=== PATIENT | male | born 1985 ===

== ENCOUNTER 2024-10-05 16:57 | Emergency (ER) | payer OTHER, SELFPAY ==
[2024-10-05 17:09] VITALS: BP 132/85; PULSE 80; RESP 16; TEMP 36.6; O2SAT 99
--- NOTE | 2024-10-05 17:29 | ED.GENADULT ---
HPI - General Adult General Chief complaint: Neck Pain/Injury Stated complaint: Neck Pain Source: patient Mode of arrival: ambulatory Limitations: no limitations History of Present Illness HPI narrative: Patient presents for evaluation pain for the last 3-4 days. He denies any precipitating cause or injury. 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 Pain is constant, 9/10 in severity, worse with certain movements. He has radiation into the left arm. He also has some numbness in left arm but not in the digits of that hand. He tried taking 600 mg of ibuprofen earlier today without much improvement. No history of injury to the neck. history of similar symptoms. Related Data Allergies Allergy/AdvReac Type Severity Reaction Status Date / Time No Known Allergies Allergy Verified 10/05/24 17:16 Review of Systems Review of Systems: CONSTITUTIONAL: Denies fever, chills, or sweats. EYES: Denies visual changes, redness, or discharge. ENT: Denies rhinorrhea, congestion, sore throat, or otalgia. CARDIOVASCULAR: Denies chest pain, palpitations, or edema. RESPIRATORY: Denies cough or dyspnea. GASTROINTESTINAL: Denies abdominal pain, nausea, vomiting, or diarrhea. GENITOURINARY: Denies dysuria or hematuria. SKIN: Denies rash or itching. MUSCULOSKELETAL:Reports neck pain with radiation into the LUE NEUROLOGIC: Reports numbness in LUE. Denies headache, dizziness, or weakness. PSYCHIATRIC: Denies anxiety or depression. PMFSH Past Medical History Medical History Hypertension Surgical History Surgical History No pertinent past surgical history Family History Family History Mother Family history non-contributory Social History Social History Smoking status: Never smoker Substance use: never Gender identity (if verbalized by the patient): Male Sexual Orientation (if Verbalized by the Patient): Straight or Heterosexual Spiritual care concerns: No Exam Narrative: GENERAL: Well-appearing, well-nourished, and in no acute distress. HEAD: Normocephalic, atraumatic. EYES: PERRLA and EOMI. ENT: Nares clear, no rhinorrhea or epistaxis. Mucous membranes moist. Oropharynx without tonsillar hypertrophy exudate or other lesions. Bilateral TMs pearly busch nonbulging NECK: Supple. No adenopathy or masses. No carotid bruits or JVD. There is tenderness over the left trapezius. There is no tenderness in the midline of the cervical spine. CHEST: Clear to auscultation. No respiratory distress. No wheezes rales or rhonchi HEART: Regular rate and rhythm. No murmur heard. Normal peripheral pulses. ABDOMEN: Soft, nontender, nondistended, normal active bowel sounds. EXTREMITIES: Normal range of motion. No edema. SKIN: Warm, dry, no rash. NEURO: No focal deficits. Alert and oriented x3. PSYCH: Normal mood and affect. Course Course Emergency Course: This is a 39-year-old male who presented for evaluation pain. I offered to perform an x-ray. He declined. I think this is reasonable. This appears to be muscular pain. Discharge with Medrol Dosepak and Flexeril. Application moist heat may. Follow up primary provider. Go to the ER for worsening symptoms. Patient in agreement with plan of care. Level of Care: Express Care Visit Vital Signs Vital signs: Vital Signs Temperature 36.6 C 10/05/24 17:09 Pulse Rate 80 10/05/24 17:09 Respiratory Rate 16 10/05/24 17:09 Blood Pressure 132/85 10/05/24 17:09 Pulse Oximetry 99 10/05/24 17:09 Temperature 36.6 C 10/05/24 17:09 Pulse Rate 80 10/05/24 17:09 Respiratory Rate 16 10/05/24 17:09 Blood Pressure 132/85 10/05/24 17:09 Pulse Oximetry 99 10/05/24 17:09 Medical Decision Making Vital Signs Vital Signs: Vital Signs Temperature 36.6 C 10/05/24 17:09 Pulse Rate 80 10/05/24 17:09 Respiratory Rate 16 10/05/24 17:09 Blood Pressure 132/85 10/05/24 17:09 Pulse Oximetry 99 10/05/24 17:09 Temperature 36.6 C 10/05/24 17:09 Pulse Rate 80 10/05/24 17:09 Respiratory Rate 16 10/05/24 17:09 Blood Pressure 132/85 10/05/24 17:09 Pulse Oximetry 99 10/05/24 17:09 Discharge Plan Discharge Clinical Impression: Cervical radiculopathy Patient Disposition: Home Condition: Stable Instructions: Antibiotic Form, Cervical Radiculopathy (ED) Patient Language: Luxembourgish Prescriptions: New methylprednisolone [Medrol (Wm)] 4 mg tablets,dose pack See Rx Instructions .ROUTE .COMPLEX Qty: 21 0RF Rx Instructions: for 6 days cyclobenzaprine 10 mg tablet 10 mg PO TID PRN (Reason: muscle spasm) Qty: 30 0RF Follow-up/Referrals: Bradley Xiong MD [Physician] - Time of Disposition: 17:28
== END 2024-10-05 17:29 | disposition home or self-care (01) ==
PROVIDERS: Emergency Provider Nurse Practitioner
DX: M54.12 Radiculopathy, cervical region (principal); I10 Essential (primary) hypertension
CPT/HCPCS: 99213; G0463

== ENCOUNTER 2024-10-06 14:00 | Emergency (ER) | payer OTHER, SELFPAY ==
--- NOTE | ~2024-10-06 | CT_ITS ---
CT cervical spine wo con Ordering provider: Vianey Mejia MD History: . Neck pain; L arm paresthesias intermitt . Comparison: None. Technique: CT of the cervical spine was performed without contrast. Sagittal and coronal reformatted images were also obtained and reviewed. Automated exposure control and iterative reconstruction roxy hnique were employed. The dose-length product was 411.85 mGy-cm. FINDINGS: VERTEBRAE: No subluxation or acute fracture. The occipital condyles are intact. DISC SPACES: Normal. Endplate changes seen in the superior aspect of C7.. PARASPINOUS SOFT TISSUES: Normal. IMPRESSION: No acute osseous abnormality cervical spine. Degenerative disc disease at the level of C6-C7. Reviewed, dictated and finalized at location A.
--- NOTE | ~2024-10-06 | XR_ITS ---
XR shoulder LT min 2V Ordering provider: Vianey Mejia MD History: . shoulder pain/NO TRAUMA/UNABLE TO ABDUCT ARM . Comparison: None. FINDINGS: BONES: No acute fracture or dislocation. JOINT SPACES: The acromioclavicular joint is normal. The glenohumeral joint is normal. SOFT TISSUES: Normal. IMPRESSION: No acute osseous abnormality left shoulder. Reviewed, dictated and finalized at location A.
[2024-10-06 14:06] VITALS: BP 166/85; PULSE 102; RESP 16; TEMP 36.5; O2SAT 98
[2024-10-06 14:17] VITALS: BP 146/93; PULSE 99; RESP 18; TEMP 36.7; O2SAT 99
--- NOTE | 2024-10-06 14:42 | ED.NECK ---
HPI - Neck Pain/Injury General Chief Complaint: Extremity Problem,Nontraumatic Stated Complaint: left neck to arm pain Time Seen by Provider: 10/06/24 14:21 Source: patient Mode of arrival: ambulatory Limitations: language barrier ([place] as 2nd language though acceptably fluent) History of Present Illness HPI Narrative: [id number] Patient presents with left sided posterior neck pain for approximately 1 week with arm pain that also started yesterday. No trauma/injury. He performs repetitive movements for work although this is primarily typing and does not involve a extensive [id number] exercises or hard labor. He was seen at urgent care yesterday for same prescribed a combination medications. He tried ibuprofen 600 mg and Flexeril night and a dose of steroid morning. He notes that occasionally experience tingling in his arm. He had seen his primary care physician (Dr Huston) last week and had blood drawn which resulted with LDL 120 and HDL 40. He is also concerned because his father had cardiac blockages and at the age of 6262 years old. Patient has no chest pain or shortness of breath. Related Data Allergies Allergy/AdvReac Type Severity Reaction Status Date / Time No Known Allergies Allergy Verified 10/06/24 14:10 [facility] Past Medical History Medical History Right hand dominant Hypertension Surgical History Surgical History No pertinent past surgical history Family History Family History Mother Family history non-contributory Father , 62yo Blockage of coronary artery of heart Social History Social History Smoking status: Never smoker Substance use: never Occupation/Education: occupation Additional occupation/education comments: Coding/typing Gender identity (if verbalized by the patient): Male Sexual Orientation (if Verbalized by the Patient): Straight or Heterosexual Spiritual care concerns: No Exam Narrative: GENERAL: Well-appearing, well-nourished, and in no acute distress. Patient does have difficulty lying completely supine or even at 45 degree angle due to pain. HEAD: Normocephalic, atraumatic. EYES: Non injected, non icteric ENT: Nares clear, no rhinorrhea or epistaxis. Gross auditory acuity intact. NECK: Supple. No meningismus. Cervical spine nontender to palpation midline without bony step-offs or obvious deformity. No tenderness to palpation throughout paraspinal musculature. Able to engage trapezius muscles and perform shoulder shrug including 5/5 against resistance. Sternocleidomastoid muscles without obvious injury or deformity of 5/5 strength on testing. CHEST: Speaking in full sentences. No respiratory distress. HEART: Tachycardic rate and rhythm. . ABDOMEN: Soft, nondistended. No rigidity or guarding. Not peritoneal EXTREMITIES: Normal range of motion. No upper extremity edema. Patient has nearly full range of motion shoulders. No tenderness to palpation of shoulder girdle. Able to perform [place] lift-off test. Neer's test without abnormality. SKIN: Warm, dry, no rash. NEURO: No focal deficits. Alert and oriented. Answering questions. Following commands. Normal speech without aphasia or dysarthria. Sensation intact throughout bilateral arms including forearms, proximal arms and including overlying deltoids. PSYCH: Normal mood and affect. Course Vital Signs Vital signs: Vital Signs Temperature 97.7 F 10/06/24 14:06 Pulse Rate 102 H 10/06/24 14:06 Respiratory Rate 16 10/06/24 14:06 Blood Pressure 166/85 H 10/06/24 14:06 Pulse Oximetry 98 10/06/24 14:06 Oxygen Delivery Room Air 10/06/24 14:06 Temperature 98.0 F 10/06/24 14:17 Pulse Rate 99 10/06/24 14:17 Respiratory Rate 18 10/06/24 14:17 Blood Pressure 146/93 H 10/06/24 14:17 Pulse Oximetry 99 10/06/24 14:17 Oxygen Delivery Room Air 10/06/24 14:17 MDM - Neck Pain/Injury MDM Narrative Medical decision making narrative: [id number]-hyxvijwg 39-year-old Patient presents with report of pain to his left posterior neck now extending to his left arm with occasional tingling/paresthesias. No trauma. No significant repetitive movements in this area. In the emergency department he is afebrile with vital signs notable for hypertension and initially mild tachycardia. Patient concerned due to family history with father dying before the age of 65 due to coronary artery blockages. Patient himself has no chest pain or shortness of breath although reasonable to perform screening EKG. Imaging negative for acute surgical emergency but there is evidence of degenerative disc disease as below. Advised to continue the medications he was prescribed by urgent care. Prescribed additional acetaminophen to supplement. Advised follow-up with his primary care physician if not improving. Otherwise stable for discharge. Differential Diagnosis Differential diagnosis: Likely disc disorder of cervical region, cervical radiculopathy, torticollis, strain of neck muscle and other (Rotator cuff tendinopathy ) Imaging Data Radiologist's impression: Impressions Shoulder X-Ray 10/06/24 15:03 IMPRESSION: No acute osseous abnormality left shoulder. Cervical Spine CT 10/06/24 16:05 IMPRESSION: No acute osseous abnormality cervical spine. Degenerative disc disease at the level of C6-C7. ECG Data EKG #1: Attestation: I personally reviewed and interpreted this ECG as follows: ECG completion date: 10/06/24 ECG completion time: 15:17 Interpretation: Normal sinus rhythm at a rate of 95 beats per minute. NM interval 141. QRS 88. QT/QTC 311/391. Good R-wave progression across the precordial leads. T-wave inversion in 3 but otherwise upright in normal in contiguous inferior leads 2 and AVF. No other T-wave inversions. Normal axis. Normal ECG. Discharge Plan Discharge Clinical Impression: Degenerative disc disease, cervical, Neck muscle strain Patient Disposition: Home Condition: Stable Instructions: Antibiotic Form, Cervical Strain (DC), Degenerative Disc Disease (ED), Neck Pain (ED) Additional Instructions: Acetaminophen/Tylenol (maximum 4000 mg per day) is safe to take with NSAIDs (the ibuprofen/Motrin you were already prescribed/taking) for pain relief. You can also continue to take the muscle relaxer and, if desired, the steroid your prescribed. The goal multimodal pain therapy is to balance some rest with maintaining the ability to Your workup including CT scan did show some degenerative disc disease at C6/C7 but otherwise without need for emergent intervention. Your EKG was normal. Follow-up with your primary care physician (Robel) especially if not improving in the next 5 days as this may indicate need for consideration of physical therapy, alternative pain management, advanced imaging (e..g MRI), etc. Return to the emergency department with any new, worsening symptoms. Patient Language: [place] Prescriptions: New acetaminophen 500 mg capsule 1,000 mg PO Q6H PRN (Reason: pain) Qty: 30 0RF No Action methylprednisolone [Medrol (Wm)] 4 mg tablets,dose pack See Rx Instructions .ROUTE .COMPLEX Qty: 21 0RF Rx Instructions: for 6 days cyclobenzaprine 10 mg tablet 10 mg PO TID PRN (Reason: muscle spasm) Qty: 30 0RF Follow-up/Referrals: PHYSICIAN,[facility]RNALISTS AND OTHER WRITERS [Primary Care Provider] - Stand Alone Forms: Work/School Release IP Time of Disposition: 16:26
--- NOTE | 2024-10-06 14:53 | ECG_ITS ---
Test Date: 2024-10-06 15:17:45 Measurements Intervals [place] Rate: 95 P: 30 WA: 141 QRS: 50 QRSD: 88 T: 23 QT: 311 QTc: 391 Interpretive Statements SINUS RHYTHM NORMAL ECG No previous ECG available for comparison Electronically Signed On 10-06-2024 18:10:35 CDT by David Carlson D.O.
[2024-10-06] MEDS: HYDROcodone/acetaminophen (*CRX) 5-325 MG TABLET 1 TAB PO (15:14)
== END 2024-10-06 16:58 | disposition home or self-care (01) ==
PROVIDERS: Emergency Provider Student in an Organized Health Care Education/Training Program
DX: S16.1XXA Strain of muscle, fascia and tendon at neck level, initial encounter (principal); M50.323 Other cervical disc degeneration at C6-C7 level; I10 Essential (primary) hypertension; X58.XXXA Exposure to other specified factors, initial encounter
CPT/HCPCS: 72125; 73030; 93005; 99284; A9270